=== PATIENT | male | born 1970 | race African-American/Black ===

== ENCOUNTER 2021-01-27 08:00 | Inpatient (IN) | payer BC ==
[2021-01-22 10:04] VITALS: BMI 45.9
[2021-01-27] MEDS ORDERED: ROPIVACAINE HCL 0.5% 30ML VIAL ONE (08:55)
[2021-01-27] MEDS ORDERED: SODIUM CHLORIDE 0.9% P/F 10 ML VIAL IJ ONE (08:55)
[2021-01-27] MEDS ORDERED: MIDAZOLAM HCL 2 MG/2 ML SINGLE DOSE VIAL ONE (08:59)
[2021-01-27] MEDS ORDERED: ONDANSETRON 4 MG/2 ML VIAL IVPUSH PRN (09:28)
[2021-01-27] MEDS ORDERED: HYDROmorphone HCL/PF 1 MG/ML VIAL IVPUSH PRN (09:28)
[2021-01-27] MEDS ORDERED: oxyCODONE HCL 5 MG TABLET PO PRN (09:28)
[2021-01-27] MEDS ORDERED: LACTATED RINGERS SOLUTION 1,000 ML IV SCH (09:30)
[2021-01-27] MEDS ORDERED: fentaNYL CITRATE 250 MCG/5 ML VIAL ONE (09:44)
[2021-01-27] MEDS ORDERED: ROCURONIUM BROMIDE 50 MG/5 ML SYRINGE ONE ×2 (09:45)
[2021-01-27] MEDS ORDERED: PROPOFOL 20 ML ONE (09:45)
[2021-01-27] MEDS ORDERED: BUPIVACAINE HCL/PF 0.25% (2.5MG/ML) 10 ML VIAL ONE (10:13)
[2021-01-27] MEDS ORDERED: SUCCINYLCHOLINE CHLORIDE 200 MG/10 ML SYRINGE ONE (10:20)
[2021-01-27] MEDS ORDERED: NEOSTIGMINE METHYLSULFATE 0.5 MG/1 ML - 10 ML MDV ONE (11:49)
[2021-01-27] MEDS ORDERED: HYDROmorphone HCL/PF 1 MG/ML VIAL ONE (11:58)
[2021-01-27] MEDS ORDERED: FAMOTIDINE 20 MG/50 ML IVPB 20 MG/50 ML MG IVPB ONE (12:20)
[2021-01-27] MEDS: METOCLOPRAMIDE HCL INJECTION 10 MG/2 ML VIAL IVPUSH SCH ×3 (12:20→23:56)
[2021-01-27] MEDS: ACETAMINOPHEN 1000 MG/100 ML VIAL IVPB SCH ×3 (12:25→23:56)
[2021-01-27] MEDS ORDERED: FAMOTIDINE 20 MG PREMIXED IVPB IVPB ONE (12:55)
[2021-01-27 13:32] LABS: ALBUMIN 3.6 g/dl (3.4-5.0); BILIRUBIN,TOTAL 0.7 mg/dl (0.2-1); CALCIUM 8.8 mg/dl (8.5-10); CREATININE 1.2 mg/dl (0.55-1.3); TOT PROT 6.7 g/dl (6.4-8.2)
[2021-01-27 13:38] LABS: HEMOGLOBIN 14.1 GM/dl (11.7-16.9); MCHC 32.1 g/dl (32.0-35.9); MEAN CELL VOLUME 90.2 fl (80-96); MEAN PLT VOLUME 10.9 fl (7.5-11.1); PLATELET COUNT 173 10^3/uL (134-434); RBC 4.88 M/mm3 (4.00-5.60); RDW 13.6 % (11.9-15.9); WHITE BLOOD COUNT 9.7 K/mm3 (4.0-10.8)
[2021-01-27] MEDS: ONDANSETRON 4 MG/2 ML VIAL IVPUSH SCH ×3 (17:31→23:56)
[2021-01-27] MEDS: ENOXAPARIN NA (PORCINE) 40 MG/0.4 ML DISP.SYRIN SQ SCH (21:14)
[2021-01-27] MEDS: FAMOTIDINE 20 MG/50 ML IVPB 20 MG/50 ML MG IVPB SCH (21:14)
[2021-01-27] MEDS: HYDROmorphone HCL/PF 1 MG/ML VIAL IVPB PRN (21:22)
[2021-01-28] MEDS: HYDROmorphone HCL/PF 1 MG/ML VIAL IVPB PRN ×2 (02:23→08:14)
[2021-01-28] MEDS: ONDANSETRON 4 MG/2 ML VIAL IVPUSH SCH ×4 (04:12→12:10)
[2021-01-28] MEDS: METOCLOPRAMIDE HCL INJECTION 10 MG/2 ML VIAL IVPUSH SCH ×2 (06:26→12:10)
[2021-01-28] MEDS: ACETAMINOPHEN 1000 MG/100 ML VIAL IVPB SCH (06:26)
[2021-01-28] MEDS: SODIUM CHLORIDE 1,000 ML IV SCH ×2 (07:54→12:10)
[2021-01-28 08:20] LABS: HEMOGLOBIN 11.7 GM/dl (11.7-16.9); MCH 29.5 pg (25.7-33.7); MCHC 32.5 g/dl (32.0-35.9); MEAN CELL VOLUME 90.7 fl (80-96); MEAN PLT VOLUME 10.4 fl (7.5-11.1); PLATELET COUNT 159 10^3/uL (134-434); RBC 3.96 M/mm3 (4.00-5.60); RDW 13.6 % (11.9-15.9); WHITE BLOOD COUNT 11.6 K/mm3 (4.0-10.8)
[2021-01-28 08:25] LABS: ALBUMIN 3.4 g/dl (3.4-5.0); BILIRUBIN,TOTAL 0.8 mg/dl (0.2-1); CALCIUM 8.2 mg/dl (8.5-10); CREATININE 1.1 mg/dl (0.55-1.3); TOT PROT 6.5 g/dl (6.4-8.2)
[2021-01-28] MEDS: ENOXAPARIN NA (PORCINE) 40 MG/0.4 ML DISP.SYRIN SQ SCH (09:18)
[2021-01-28] MEDS: FAMOTIDINE 20 MG/50 ML IVPB 20 MG/50 ML MG IVPB SCH (09:18)
[2021-01-28 14:21] VITALS: BP 119/60; PULSE 96; TEMP 98.8
== END 2021-01-28 15:15 | disposition home or self-care (01) | DRG 621 ==
LOC: FM/S 08:36
PROVIDERS: ADMIT Surgery; ATTEND Surgery
PROC: 0DNW4ZZ Release Peritoneum, Percutaneous Endoscopic Approach (ICD-10-PCS; 2021-01-27)
PROC: 0DJ04ZZ Inspection of Upper Intestinal Tract, Percutaneous Endoscopic Approach (ICD-10-PCS; 2021-01-27)
PROC: 0DB64Z3 Excision of Stomach, Percutaneous Endoscopic Approach, Vertical (ICD-10-PCS; principal; 2021-01-27 10:39)
PROC: 0FB24ZX Excision of Left Lobe Liver, Percutaneous Endoscopic Approach, Diagnostic (ICD-10-PCS; 2021-01-27 10:39)
DX: E66.01 Morbid (severe) obesity due to excess calories (principal); Z68.42 Body mass index [BMI] 45.0-49.9, adult; I10 Essential (primary) hypertension; E78.5 Hyperlipidemia, unspecified; K21.9 Gastro-esophageal reflux disease without esophagitis; G47.30 Sleep apnea, unspecified; R16.0 Hepatomegaly, not elsewhere classified; K66.0 Peritoneal adhesions (postprocedural) (postinfection)
CPT/HCPCS: 36415; 74240-TC-FY; 80053; 85027; 94010; 94660; 94760; J0131